=== PATIENT | male | born 1985 | race African-American/Black ===

== ENCOUNTER 2016-09-18 22:14 | Emergency (ER) | payer BC, OTHER ==
[~2016-09-18] VITALS: Ht 175.3 cm; Wt 97.5 kg
[2016-09-18 22:43] VITALS: BP 158/85
[2016-09-18] MEDS ORDERED: CEPH-264 PO (22:48)
[2016-09-18] MEDS ORDERED: SULF1TAB23 PO (22:48)
[2016-09-18] MEDS ORDERED: IBUP-1060 PO (22:48)
--- NOTE | 2016-09-18 22:48 | PHYS DOC ---
Past Medical History Past Medical History: No Pertinent History Past Surgical History: No Surgical History Alcohol Use: Heavy Drug Use: Marijuana Adult General Chief Complaint Chief Complaint: INSECT BITE HPI HPI This is a 31-year-old male who has some warmth and mild swelling to his left upper extremity as well as some mild swelling to the right gluteal cleft area. Patient believes he was bit by a bug earlier today. Denies any fever or chills. Denies any drainage from the buttock area. Patient does not have any significant health problems. Review of Systems Review of Systems Constitutional: Denies fever or chills [] Eyes: Denies change in visual acuity, redness, or eye pain [] HENT: Denies nasal congestion or sore throat [] Respiratory: Denies cough or shortness of breath [] Cardiovascular: No additional information not addressed in HPI [] GI: Denies abdominal pain, nausea, vomiting, bloody stools or diarrhea [] : Denies dysuria or hematuria [] Musculoskeletal: Denies back pain or joint pain [] Integument: Denies rash or skin lesions [] Neurologic: Denies headache, focal weakness or sensory changes [] Endocrine: Denies polyuria or polydipsia [] Current Medications Current Medications Current Medications Medications (Trade) Dose Ordered Sig/Doreen Start Time Stop Time Status Last Admin Dose Admin Ibuprofen (Motrin) 800 mg 1X ONCE 09/18/16 23:00 09/18/16 23:01 Allergies Allergies Allergies Coded Allergies Type Severity Reaction Last Updated Verified No Known Drug Allergies 01/29/15 No Physical Exam Physical Exam Constitutional: Well developed, well nourished, no acute distress, non-toxic appearance. [] HENT: Normocephalic, atraumatic, bilateral external ears normal, oropharynx moist, no oral exudates, nose normal. [] Eyes: PERRLA, EOMI, conjunctiva normal, no discharge. [] Neck: Normal range of motion, no tenderness, supple, no stridor. [] Cardiovascular:Heart rate regular rhythm, no murmur [] Lungs & Thorax: Bilateral breath sounds clear to auscultation [] Abdomen: Bowel sounds normal, soft, no tenderness, no masses, no pulsatile masses. [] Skin: Warmth to palpation of the left upper extremity, dry, no erythema, no rash , small area of swelling to the right gluteal cleft area with minimal fluctuance noted approximately 2 cm in length. [] Back: No tenderness, no CVA tenderness. [] Extremities: No tenderness, no cyanosis, no clubbing, ROM intact, no edema. [] Neurologic: Alert and oriented X 3, normal motor function, normal sensory function, no focal deficits noted. [] Psychologic: Affect normal, judgement normal, mood normal. [] Current Patient Data Vital Signs Vital Signs Date Time Temp Pulse Resp B/P (MAP) Pulse Ox O2 Delivery O2 Flow Rate FiO2 09/18/16 22:43 97.6 99 20 100 Room Air 97.6 EKG EKG [] Radiology/Procedures Radiology/Procedures [] Course & Med Decision Making Course & Med Decision Making Pertinent Labs and Imaging studies reviewed. (See chart for details) This 31-year-old male with a likely cellulitis of his left upper extremity and mild abscess formation of the buttock will be given by mouth antibiotics and Motrin and given strict instruction follow-up in the next several days for any increase in swelling to that area. I counseled him that he may require incision and drainage if this therapy does not work. He is very agreeable this plan. Return precautions were acknowledged and provided to the patient. Dragon Disclaimer Dragon Disclaimer This electronic medical record was generated, in whole or in part, using a voice recognition dictation system. Departure Departure Impression: Primary Impression: Cellulitis and abscess of buttock Disposition: 01 HOME, SELF-CARE Admitting Physician: Other Condition: STABLE Referrals: NO PCP (PCP) Patient Instructions: Cellulitis, [id number] Additional Instructions: Please take your medications as prescribed. Return to the ER if you develop any worsening of your swelling in the buttock region over the next several days. Follow up with your primary care doctor in 2-3 days for your symptoms. Scripts Ibuprofen (IBUPROFEN) 800 Mg Tablet 800 MG PO PRN Q6HRS Y for INFLAMMATION, #20 TAB Prov: GREGORIO KAY DO 09/18/16 Cephalexin (KEFLEX) 500 Mg Capsule 1 CAP PO TID, #30 CAP Prov: GREGORIO KAY DO 09/18/16 Sulfamethoxazole/Trimethoprim (BACTRIM 400-80 MG TABLET) 1 Each Tablet 1 TAB PO BID, #20 TAB Prov: GREGORIO KAY DO 09/18/16 GREGORIO KAY DO Sep 18, 2016 22:48
[2016-09-18] MEDS ORDERED: IBUPROFEN 800 MG TABLET. PO ONE (23:00)
== END 2016-09-18 22:55 | disposition home or self-care (01) ==
LOC: ER 22:14
DX: L02.31 Cutaneous abscess of buttock (principal); L03.317 Cellulitis of buttock
CPT/HCPCS: 99283